=== PATIENT | male | born 1985 | race African-American/Black ===

== ENCOUNTER 2022-01-17 21:46 | Emergency (ER) | payer MEDICAID ==
[~2022-01-17] VITALS: Ht 180.3 cm; Wt 86.4 kg
[2022-01-18 04:49] VITALS: BP 111/64
[2022-01-18] MEDS ORDERED: ceFAZolin 1gm IM kit IM ONE (05:15)
[2022-01-18] MEDS ORDERED: CEPH250T PO (05:16)
[2022-01-18] MEDS ORDERED: TETanus/Pertussis (Acell)/Diphther VAC/PF (Tdap-Adult) 0.5ml syringe IMVAC ONE (05:20)
== END 2022-01-18 06:01 | disposition home or self-care (01) ==
LOC: ER 21:47
DX: L03.114 Cellulitis of left upper limb (principal)
CPT/HCPCS: 90471; 90715; 96372; 99284; J0690; A6449

== ENCOUNTER 2022-01-21 03:27 | Emergency (ER) | payer MEDICAID ==
[~2022-01-21] VITALS: Ht 180.3 cm; Wt 86.3 kg
[~2022-01-21 03:27] MED LIST: CEPH250T PO
--- NOTE | 2022-01-21 03:40 | NUR ---
PT REFUSING TRIAGE VITALS.
[2022-01-21] MEDS ORDERED: bacitracin 15gm ointment TP ONE (03:50)
--- NOTE | 2022-01-21 03:53 | NUR ---
PT UNCOOPERATIVE WITH MD. NAGELLLING AT STAFF. PROVIDING AN UNSAFE ENVIRONMENT FOR TREATMENT. PT REFUSED TO HAVE WOUND INFILTRATED AND CLEANED. PT ELOPED FROM ED.
[2022-01-22] MEDS ORDERED: MUPI22OI30 TOP (09:00)
[2022-01-22] MEDS ORDERED: CEPH250T PO (09:00)
== END 2022-01-21 03:55 | disposition left against medical advice (07) ==
LOC: ER 03:28
DX: S61.512A Laceration without foreign body of left wrist, initial encounter (principal); F17.200 Nicotine dependence, unspecified, uncomplicated; Z91.041 Radiographic dye allergy status; Y08.89XA Assault by other specified means, initial encounter; Y93.89 Activity, other specified; Y92.89 Other specified places as the place of occurrence of the external cause; Y99.8 Other external cause status
CPT/HCPCS: 99281

== ENCOUNTER 2022-01-22 08:01 | Emergency (ER) | payer MEDICAID ==
[~2022-01-22] VITALS: Ht 180.3 cm; Wt 86.0 kg
[2022-01-22 08:06] VITALS: BP 109/65
[2022-01-22] MEDS ORDERED: MUPI22OI30 TOP (09:00)
[2022-01-22] MEDS ORDERED: CEPH250T PO (09:00)
--- NOTE | 2022-01-22 09:07 | NUR ---
PT DOESNT WANT ME TO WRAP HIS LAC ON HIS ARM.
== END 2022-01-22 09:15 | disposition home or self-care (01) ==
LOC: ER 08:01
DX: S61.502A Unspecified open wound of left wrist, initial encounter (principal); L03.114 Cellulitis of left upper limb; Y08.89XA Assault by other specified means, initial encounter; Y93.89 Activity, other specified; Y92.89 Other specified places as the place of occurrence of the external cause; Y99.8 Other external cause status
CPT/HCPCS: 99283; A6258